=== PATIENT | male | born 1990 | race Hispanic/Latino ===

== ENCOUNTER 2021-10-25 02:34 | Emergency (ER) | payer OTHER ==
[~2021-10-25] VITALS: Ht 175.3 cm; Wt 102.3 kg
[2021-10-25] MEDS ORDERED: WELLTAB40 PO (02:39)
[2021-10-25] MEDS ORDERED: LOTR1CRE12 TOP (07:28)
[2021-10-25 07:45] VITALS: BP 136/76
== END 2021-10-25 07:48 | disposition home or self-care (01) ==
LOC: M ED 02:34
DX: B35.0 Tinea barbae and tinea capitis (principal); B35.4 Tinea corporis

== ENCOUNTER → 2022-08-02 | Outpatient (CLI) | payer OTHER ==
[~2022-08-02] MED LIST: LOTR1CRE12 TOP; WELLTAB40 PO
== END ==
LOC: M PLAIMG 06:43
PROVIDERS: ATTEND Physician Assistant
DX: M50.222 Other cervical disc displacement at C5-C6 level (principal); M51.27 Other intervertebral disc displacement, lumbosacral region

== ENCOUNTER 2022-11-20 10:40 | Emergency (ER) | payer OTHER ==
[~2022-11-20] VITALS: Ht 175.3 cm; Wt 104.5 kg
[2022-11-20] MEDS ORDERED: ACETAMINOPHEN TAB 650MG DOSE (2X325MG) PO ONE (12:35)
[2022-11-20] MEDS ORDERED: KETOROLAC 30 MG/ML 1ML VIAL IM ONE (12:35)
[2022-11-20] MEDS ORDERED: IBUP80TA PO (12:52)
[2022-11-20] MEDS ORDERED: MEDR4PAK PO (12:52)
[2022-11-20] MEDS ORDERED: CYCL-707 PO (12:52)
[2022-11-20] MEDS ORDERED: ANTI1CRE6 (13:06)
[2022-11-20] MEDS ORDERED: TERB250T91 (13:06)
[2022-11-20] MEDS ORDERED: KETO2SHA8 (13:06)
[2022-11-20 13:07] VITALS: BP 137/83
== END 2022-11-20 13:01 | disposition home or self-care (01) ==
LOC: M ED 10:40
DX: M54.31 Sciatica, right side (principal); M51.37 Other intervertebral disc degeneration, lumbosacral region; Z79.899 Other long term (current) drug therapy
CPT/HCPCS: 96372; 99283; J1885

== ENCOUNTER → 2022-11-21 | Outpatient (CLI) | payer OTHER ==
[~2022-11-21] MED LIST changes: +ANTI1CRE6; +CYCL-707 PO; +IBUP80TA PO; +KETO2SHA8; +MEDR4PAK PO; +TERB250T91
== END ==
LOC: M SOG 13:41
PROVIDERS: ATTEND Orthopaedic Surgery
DX: M54.50 Low back pain, unspecified (principal)

== ENCOUNTER 2024-04-05 10:52 | Emergency (ER) | payer OTHER ==
[~2024-04-05] VITALS: Ht 175.3 cm; Wt 100.5 kg
[2024-04-05] MEDS ORDERED: HYDR-3363 (11:07)
[2024-04-05 11:12] VITALS: BP 128/92; TEMP 97.8; O2SAT 100
[2024-04-05] MEDS: PROPARACAINE 0.5% OPHTH SOL 15ML OS ONE (13:25)
[2024-04-05] MEDS: FLUORESCEIN OPHTH 1MG STRIP OS ONE (13:25)
[2024-04-05] MEDS ORDERED: OFLO5DRO OS (13:51)
== END 2024-04-05 14:02 | disposition home or self-care (01) ==
LOC: M ED 10:52
DX: H10.32 Unspecified acute conjunctivitis, left eye (principal); M54.50 Low back pain, unspecified; F32.A Depression, unspecified; Z79.1 Long term (current) use of non-steroidal anti-inflammatories (NSAID); Z79.899 Other long term (current) drug therapy